=== PATIENT | female | born 1940 | race Caucasian/White ===

== ENCOUNTER → 2016-07-30 | Outpatient (CLI) | payer MEDICARE, OTHER ==
[~2016-07-30] MED LIST: ATOR80TA PO; CALC-191 PO; CARB30DR OP; CEPH-582 PO; CITA-51 PO; CRAN500C2 PO; DOCU-175 PO; IPRA4AER PO; LORA10TA7 PO; MULT-175 PO; OMEP20CA10 PO; RANI-197 PO; ROPI0.5T5 PO; SOTA80TA42 PO; TRAM50TA4 PO; VITAMIN B PO; WARF2.5T73 PO; [UNRECOGNIZED DRUG - CODE] PO; [UNRECOGNIZED DRUG - CODE] PO; [UNRECOGNIZED DRUG - OTHER] PO
[2016-07-30 08:52] LABS: BLOOD, URINE 3+ (NEGATIVE); COLOR,URINE YELLOW (YELLOW); LEUKOCYTE ESTERASE ,URINE NEGATIVE (NEGATIVE); NITRITE,URINE NEGATIVE (NEGATIVE); UROBILINOGEN,URINE 0.2 EU/DL (NORMAL)
[2016-07-30 08:59] LABS: SQUAMOUS EPITHELIAL CELL,UR 0-5
[2016-07-30 09:00] LABS: BACTERIA,URINE 3+ (NEGATIVE); MUCUS,URINE PRESENT; RBC,URINE 50-200 /HPF (0-3)
[2016-07-30 09:01] LABS: HYALINE CASTS, URINE 0-1 /LPF
== END ==
LOC: LABN.NHH 08:43
PROVIDERS: ATTEND Internal Medicine
DX: R32 Unspecified urinary incontinence (principal); Z46.6 Encounter for fitting and adjustment of urinary device
CPT/HCPCS: 81001

== ENCOUNTER 2016-10-09 09:14 | Inpatient (IN) ==
--- NOTE | 2016-10-09 09:58 | Emergency Department Report ---
Nausea/Vomiting/Diarrhea HPI - General Chief complaint: Nausea/Vomiting/Diarrhea Stated complaint: n/v Time Seen by Provider: 10/09/16 09:58 Source: patient, family Mode of arrival: ambulatory Limitations: no limitations - History of Present Illness HPI Narrative: Patient is a 75-year-old female morbid obesity, chronically on oxygen, currently on Coumadin due to CVA, atrial fibrillation. Patient presents the ER for evaluation of a 2 to three-day history of nausea vomiting diarrhea. Patient originally started with abdominal pain left-sided with associated diarrhea which is now resolved in the last 24-36 hours. Patient is also been having bilious vomiting which has not resolved, last episode of emesis was this morning. Patient doctors in [facility] [place] attempted to contact primary medical physician yesterday received no call back. Patient continuing to complain of 6/10 abdominal pain so patient was brought to the ER today for evaluation. MD complaint: nausea, vomiting, diarrhea, abdominal pain Onset (ago): day(s) (2-3) Description of Vomiting: bilious Description of Diarrhea: water Associated Abdominal Pain: Yes Location of pain: LUQ, LLQ Severity: moderate Severity scale (1-10): 6 Quality: cramping Context: history of abdominal surgery - Related Data Home Medications Medication Instructions Recorded Confirmed Acetaminophen [Acetaminophen ER] 1,300 mg PO BID #0 12/11/12 10/09/16 Citalopram Hydrobromide 40 mg PO DAILY #0 12/11/12 10/09/16 [Citalopram HBr] Gabapentin 400 mg PO HS #0 12/11/12 10/09/16 Loratadine 10 mg PO DAILY #0 12/11/12 10/09/16 Ropinirole HCl 0.75 mg PO HS #0 12/11/12 10/09/16 Sotalol HCl [Sotalol] 40 mg PO Q8hr #0 12/11/12 10/09/16 raNITIdine HCl [Ranitidine HCl] 150 mg PO BID #0 12/11/12 10/09/16 Atorvastatin [Lipitor] 80 mg PO HS #0 tab 06/05/15 10/09/16 Calcium Carbonate/Vitamin D3 1 tab PO DAILY #0 06/05/15 10/09/16 [Calcium 600-Vit D3 200 Tablet] Carboxymethylcellulose Sodium 2 drop OP PRN #0 03/10/16 07/15/17 [Refresh Plus] Docusate Sodium 100 mg PO BID #0 06/05/15 10/09/16 Multivitamin [One Daily] 1 tab PO DAILY #0 06/05/15 10/09/16 Omeprazole 20 mg PO DAILY #0 06/05/15 10/09/16 Tramadol HCl 50 mg PO BID #0 06/05/15 10/09/16 Warfarin Sodium 2.5 mg PO 1700 #0 06/05/15 10/09/16 Cranberry 500 mg PO DAILY #0 08/29/15 10/09/16 Ipratropium/Albuterol Sulfate 1 puff PO QID PRN #0 08/29/15 10/09/16 [Combivent Respimat Inhal [place]] VITAMIN B6/D3 1 tab PO DAILY #0 08/29/15 10/09/16 CephALEXin [Keflex] 250 mg PO DAILY 10/09/16 10/09/16 Nitroglycerin 0.4 mg SL Q5M PRN 10/09/16 10/09/16 Allergies Allergy/AdvReac Type Severity Reaction Status Date / Time Sulfa (Sulfonamide Allergy Severe SWELLING Verified 10/09/16 09:51 Antibiotics) Sulfamethoprim Allergy Unknown Uncoded 10/09/16 09:51 Review of Systems Constitutional: Reports: weakness. Denies: fever, chills ENT: Denies: throat pain, dental pain Cardiovascular: Denies: chest pain, palpitations Respiratory: Denies: cough, dyspnea Gastrointestinal: Reports: abdominal pain, nausea, diarrhea. Denies: vomiting, constipation, melena, hematochezia Genitourinary: Denies: urgency, dysuria, frequency Neurological: Denies: headache, weakness Endocrine: Denies: fatigue, heat or cold intolerance PFSH Patient Stated Medical History Cerebrovascular Accident Yes Cardiac Arrhythmia Yes: A FIB Hypertension Yes Other Respiratory Yes: HOME O2 USE Gastroesophageal Reflux Yes Disease Hx Incontinence Yes Hx Urinary Tract Infection Yes Medical History Updates: DVT. Hypercholesterol. Coronary artery disease. GERD Surgical History: Umbilical hernia repair many years ago - Social History Smoking status: Never smoker Substance use type: does not use Alcohol intake frequency: does not drink Physical Exam - Limitations Limitations: no limitations - General General appearance: alert, in no apparent distress, obese (morbid obesity) - Head Head exam: normocephalic - ENT ENT exam: Present: normal oropharynx, mucous membranes moist - Neck Neck exam: Present: full ROM - Chest Chest inspection: Present: symmetric chest wall rise - Respiratory Respiratory exam: Present: normal lung sounds bilaterally. Absent: respiratory distress, wheezes, stridor - Cardiovascular Cardiovascular exam: Present: regular rate, normal rhythm, normal heart sounds - Abdominal Exam Abdominal exam: Present: soft, diminished bowel sounds. Absent: distention Abdominal tenderness: Present: LUQ, LLQ, moderate - Extremities Exam Extremities exam: Present: full ROM, normal capillary refill. Absent: tenderness - Back Exam Back exam: Present: full ROM. Absent: tenderness - Skin Skin exam: Present: warm, dry - Neurological Exam Neurological exam: Present: alert, oriented X3 - Psychiatric Psychiatric exam: Present: normal affect, normal mood Course - Consultations Consultation #1: Dr. Jerson Lira, surgery: Admit to hospitalist service he will consult Consultation #2: Dr. Nina, hospitalist: Please insert NG tube, INR, 10 mg Reglan IV he will admit Vital Signs Temperature 97.8 F 10/09/16 09:15 Pulse Rate 89 10/09/16 09:15 Respiratory Rate 24 10/09/16 09:15 Blood Pressure 179/96 H 10/09/16 09:15 Pulse Oximetry 94 10/09/16 09:15 Temperature 97.8 F 10/09/16 09:15 Pulse Rate 89 10/09/16 09:15 Respiratory Rate 24 10/09/16 09:15 Blood Pressure 179/96 H 10/09/16 09:15 Pulse Oximetry 94 10/09/16 09:15 Nausea/Vomiting/Diarrhea - [facility] Narrative Medical decision making narrative: Small bowel obstruction, acute cholecystitis, gastroenteritis, - Differential Diagnosis Likely: food poisoning, gastroenteritis, dehydration - Medical Records Attestation: I reviewed the patient's medical records. - Lab Data Attestation: I reviewed the patient's lab results. Result diagrams: 10/09/16 10:12 10/09/16 10:12 Lab Results 10/09/16 10/09/16 10/09/16 Range/Units 10:12 10:12 10:32 WBC 10.2 (4.5-11.0) T/MM3 RBC 5.14 (4.00-5.20) M/MM3 Hgb 15.2 (12-16) GM/DL Hct 47.2 H (36-46) % MCV 91.8 (80-100) UM3 MCH 29.6 (26-34) UUG MCHC 32.2 (31-37) GM/DL RDW Std Deviation 44.5 (36.9-50.2) FL Plt Count 146 (130-400) T/MM3 MPV 10.0 (9.4-12.4) UM3 Immature Gran % (Auto) 0.2 (0.0-0.5) % Neut % (Auto) 66.7 H (33-66) % Lymph % (Auto) 26.8 (23-45) % Robertson % (Auto) 6.2 (0-9.0) % Eos % (Auto) 0.0 (0-4) % Baso % (Auto) 0.1 (0-2) % Neut # 6.8 (1.8-7.7) T/MM3 Lymph # 2.7 (1-4.8) T/MM3 Robertson # 0.6 (0-0.8) T/MM3 Eos # 0.0 (0-0.5) T/MM3 Baso # 0.0 (0-0.2) T/MM3 Abs Immat Gran (auto) 0.02 (0.00-0.03) T/MM3 Turbidity < 20 (0-20) Sodium 143 (134-144) MEQ/L Potassium 3.2 L (3.6-5) MEQ/L Chloride 97 L (98-107) MEQ/L Carbon Dioxide 34 H (22-30) MEQ/L Anion Gap 12 (5-15) MEQ/L BUN 13.0 (7-17) MG/DL Creatinine 0.6 L (0.7-1.2) MG/DL GFR Calculation 98 BUN/Creatinine Ratio 22 (6-26) RATIO Glucose 158 H (65-110) MG/DL Calculated Osmolality 278 (261-280) MOSM/KG Calcium 9.8 (8.4-10.2) MG/DL Total Bilirubin 1.10 (0.20-1.30) MG/DL Icterus Index < 2 (0-7) AST 45 H (14-36) U/L ALT 44 (9-52) U/L Alkaline Phosphatase 73 (38-126) U/L Total Protein 6.7 (6.3-8.2) G/DL Albumin 4.4 (3.5-5.0) G/DL Globulin 2.3 L (2.4-3.6) G/DL Albumin/Globulin Ratio 1.9 (1.1-2.2) RATIO Lipase 60 (23-300) U/L Specimen Hemolysis < 15 (0-25) Ur Collection Type Urine, clean catch Urine Color Yellow (YELLOW) Urine Clarity Cloudy Urine pH 6.0 (5.0-8.0) Ur Specific [place] 1.025 (1.015-1.025) Urine Protein 1+ A (NEGATIVE) Urine Glucose (UA) Negative (NEGATIVE) Urine Ketones 2+ A (NEGATIVE) Urine Occult Blood 2+ A (NEGATIVE) Urine Nitrate Negative (NEGATIVE) Urine Bilirubin 2+ A (NEGATIVE) Urine Urobilinogen 1.0 (NORMAL) EU/DL Ur Leukocyte Esterase 2+ A (NEGATIVE) Urine RBC 20-30 H (0-3) /HPF Urine WBC 10-20 H (0-5) /HPF Urine WBC Clumps Few Ur Squamous Epith Cells 0-5 Ur Transition Epith Cell 3-5 /HPF Ur Renal Epithelial Cell 1-3 /HPF Urine Bacteria 2+ H (NEGATIVE) Urine Yeast Budding+pseudohyphae A (NEGATIVE) Ur Culture Indicated? Cult reflexed &setup - Radiology Data Attestation: I reviewed the patient's radiology results. CT scan shows left upper quadrant dilated loops of small bowel concerning for partial small bowel obstruction, distal decompressed small bowel Disposition Clinical Impression: Partial small bowel obstruction UTI (urinary tract infection) Qualifiers: Urinary tract infection type: acute cystitis Hematuria presence: without hematuria Qualified Code(s): N30.00 - Acute cystitis without hematuria [place] [facility] [place] Condition: Stable Prescriptions: No Action Acetaminophen [Acetaminophen ER] 1,300 mg PO BID #0 Citalopram Hydrobromide [Citalopram HBr] 40 mg PO DAILY #0 Gabapentin 400 mg PO HS #0 Loratadine 10 mg PO DAILY #0 raNITIdine HCl [Ranitidine HCl] 150 mg PO BID #0 Tramadol HCl 50 mg PO BID #0 Atorvastatin [Lipitor] 80 mg PO HS #0 tab Carboxymethylcellulose Sodium [Refresh Plus] 2 drop OP PRN #0 Docusate Sodium 100 mg PO BID #0 Multivitamin [One Daily] 1 tab PO DAILY #0 Warfarin Sodium 2.5 mg PO 1700 #0 Nitroglycerin 0.4 mg SL Q5M PRN PRN Reason: Chest Pain Ropinirole HCl 0.75 mg PO HS #0 Sotalol HCl [Sotalol] 40 mg PO Q8hr #0 Omeprazole 20 mg PO DAILY #0 Calcium Carbonate/Vitamin D3 [Calcium 600-Vit D3 200 Tablet] 1 tab PO DAILY # 0 VITAMIN B6/D3 1 tab PO DAILY #0 Cranberry 500 mg PO DAILY #0 Ipratropium/Albuterol Sulfate [Combivent Respimat Inhal [place]] 1 puff PO QID PRN #0 PRN Reason: SHORTNESS OF AIR CephALEXin [Keflex] 250 mg PO DAILY Referrals: JERICA GAINES MD [Family Provider] - Time of Disposition: 12:20 - Seen By: physician
[2016-10-09] MEDS ORDERED: NS 1,000 ML IV ONE (10:01)
[2016-10-09] MEDS ORDERED: ONDANSETRON 4 MG/2 ML INJECTION IVP ONE (10:01)
[2016-10-09] MEDS ORDERED: FentaNYL 100 MCG/2 ML INJECTION IVP ONE (10:01)
[2016-10-09] MEDS ORDERED: SALINE FLUSH 10ml SYRINGE ONE (10:46)
[2016-10-09] MEDS ORDERED: IOHEXOL 300mg/ml 100ml INJECTION ONE (10:46)
[2016-10-09] MEDS ORDERED: NS 100 ML ONE (10:46)
[2016-10-09] MEDS ORDERED: METOCLOPRAMIDE 10mg/2ml INJECTION IVP ONE (12:17)
[2016-10-09] MEDS ORDERED: NITROGLYCERIN 0.4 MG SUBLINGUAL TABLET SL PRN (13:01)
--- NOTE | 2016-10-09 13:07 | History & Physical Report ---
History of Present Illness Date: 10/09/16 Chief complaint: Nausea and vomiting HPI: This is a 75 year old female that presents with 3 days of worsening nausea and vomiting and left-sided abdominal pain. On , it started with 2 large episodes of diarrhea and then has persistently had worsening nausea and vomiting ever since. Patient states that she is vomiting almost every 3-4 hours. There is no blood. She states that she's had a temperature as high as 100. She denies any recent sick contacts. States she's not been able to keep any of her medications down. Patient states that she is not passed gas or had a bowel movement since . Describes the episodes of vomiting as "violent". Patient denies any syncope seizures visual irritation is. She denies any chest pain or shortness of breath. Case discussed with at bedside. Review of Systems All systems: reviewed and no additional remarkable complaints except as stated [facility] Medical History Updates: Atrial fibrillation. CVA. Hypercholesterol. Coronary artery disease. GERD. COPD on 3L NC Surgical History: Umbilical hernia repair many years ago Family History: CAD DM - Social History Smoking status: Never smoker Alcohol intake: never Current residence: Apartment/Private Home Medications Home Medications Medication Instructions Recorded Confirmed Type Acetaminophen [Acetaminophen ER] 1,300 mg PO BID #0 12/11/12 10/09/16 History Citalopram Hydrobromide 40 mg PO DAILY #0 12/11/12 10/09/16 History [Citalopram HBr] Gabapentin 400 mg PO HS #0 12/11/12 10/09/16 History Loratadine 10 mg PO DAILY #0 12/11/12 10/09/16 History Ropinirole HCl 0.75 mg PO HS #0 12/11/12 10/09/16 History Sotalol HCl [Sotalol] 40 mg PO Q8hr #0 12/11/12 10/09/16 History raNITIdine HCl [Ranitidine HCl] 150 mg PO BID #0 12/11/12 10/09/16 History Atorvastatin [Lipitor] 80 mg PO HS #0 tab 06/05/15 10/09/16 History Calcium Carbonate/Vitamin D3 1 tab PO DAILY #0 06/05/15 10/09/16 History [Calcium 600-Vit D3 200 Tablet] Carboxymethylcellulose Sodium 2 drop OP PRN #0 06/05/15 10/09/16 History [Refresh Plus] Docusate Sodium 100 mg PO BID #0 06/05/15 10/09/16 History Multivitamin [One Daily] 1 tab PO DAILY #0 06/05/15 10/09/16 History Omeprazole 20 mg PO DAILY #0 06/05/15 10/09/16 History Tramadol HCl 50 mg PO BID #0 06/05/15 10/09/16 History Warfarin Sodium 2.5 mg PO 1700 #0 06/05/15 10/09/16 History Cranberry 500 mg PO DAILY #0 08/29/15 10/09/16 History Ipratropium/Albuterol Sulfate 1 puff PO QID PRN #0 08/29/15 10/09/16 History [Combivent Respimat Inhal [place]] VITAMIN B6/D3 1 tab PO DAILY #0 08/29/15 10/09/16 History CephALEXin [Keflex] 250 mg PO DAILY 10/09/16 10/09/16 History Nitroglycerin 0.4 mg SL Q5M PRN 10/09/16 10/09/16 History Allergies Allergy/AdvReac Type Severity Reaction Status Date / Time Sulfa (Sulfonamide Allergy Severe SWELLING Verified 10/09/16 09:51 Antibiotics) Sulfamethoprim Allergy Unknown Uncoded 10/09/16 09:51 Exam Vital Signs: Temperature 97.8 F 10/09/16 09:15 Pulse Rate 89 10/09/16 09:15 Respiratory Rate 24 10/09/16 09:15 Blood Pressure 179/96 H 10/09/16 09:15 Pulse Oximetry 94 10/09/16 09:15 Gen.-awake alert oriented 3, in no acute distress. HEENT-PERRLA EOMI. Neck-supple no JVD no bruits Cardiovascular-regular rate and rhythm Lungs-clear to auscultation bilaterally Abdomen-soft, nondistended, tender LUQ; hypoactive BS Extremities-no e/c/c Neurological-nonfocal Rectal-deferred -deferred Skin-W/D/I Height: 5 ft Weight: 154.6 kg Results - Labs CBC & Chem 7: 10/09/16 10:12 10/09/16 10:12 Assessment and Plan DVT Prophylaxis: Coumadin GI Prophylaxis: Protonix Resuscitation Status: Full Code Assessment and Plan: 1. PSBO - NGT/Reglan/NPO. Surgery consult pending. Has started to pass gas today while in the ER. 2. UTI - C+S pending. Start Rocephin and Diflucan. 3. Atrial fibrillation - in NSR. Restart Sot/Warf when taking po. 4. COPD - nebs prn. Continue O2 NC. - Time spent with patient 25 - 35 minutes Hospital Course Summary Disclaimer: The visit summary below is not to be considered part of the above Progress Note.
[2016-10-09] MEDS ORDERED: REFRESH CELLUVISC 1% Eye Drops 0.4ml EACH EYE PRN (13:15)
[2016-10-09 13:50] VITALS: BMI 71.9
[2016-10-09] MEDS: METOCLOPRAMIDE 10mg/2ml INJECTION IVP SCH ×2 (13:53→18:50)
[2016-10-09] MEDS: NS with KCL 20 mEq 20 MEQ/1,000 ML IV.SOLN IV SCH (14:03)
[2016-10-09] MEDS: CEFTRIAXONE 1 G in NS 100 ML IV SCH (14:05)
[2016-10-09] MEDS: FLUCONAZOLE PB 100 MG/50 ML BAG IV SCH (14:57)
[2016-10-09] MEDS: HYDROMORPHONE 2 MG/ML INJECTION IVP PRN (21:24)
[2016-10-10] MEDS: NS with KCL 20 mEq 20 MEQ/1,000 ML IV.SOLN IV SCH ×3 (01:42→12:13)
[2016-10-10] MEDS: METOCLOPRAMIDE 10mg/2ml INJECTION IVP SCH ×4 (01:48→19:04)
[2016-10-10] MEDS: HYDROMORPHONE 2 MG/ML INJECTION IVP PRN (06:34)
--- NOTE | 2016-10-10 09:23 | Progress Note ---
Subjective: Passing gas. Eager to go home. No abdominal pain. No events overnight. Breathing at baseline. Objective Vital signs: Temperature 97.6 F 10/10/16 07:26 Pulse Rate 77 10/10/16 07:26 Respiratory Rate 16 10/10/16 07:26 Blood Pressure 124/73 10/10/16 07:26 Pulse Oximetry 95 10/10/16 07:26 Oxygen Delivery Method Nasal Cannula Oxygen Flow Rate 3 General-awake alert oriented 3 in no acute distress CV-regular rate and rhythm Lungs-mild wheeze bilaterally Abdomen-obese, benign Ext-1+ edema Weight: 167.4 kg Results - Labs CBC & Chem 7: 10/10/16 04:45 10/10/16 04:45 Assessment and Plan DVT Prophylaxis: Coumadin GI Prophylaxis: Protonix Resuscitation Status: Full Code Assessment and Plan: 1. PSBO - Clinically improving. Will DC NGT and start clear liquids. Continue reglan. Encourage ambulation. 2. UTI - Gram negative organisms. Continue Rocephin. 3. Atrial fibrillation - in NSR. Restart Sotalol today. 4. COPD - nebs prn. Continue O2 NC. 5. Transaminitis - etiology unclear. No source seen on CT. Hepatic congestion?? Monitor. - Time spent with patient 25 - 35 minutes Sepsis Assessment - Evaluation Sepsis screening result: No Definite Risk Hospital Course Summary Disclaimer: The visit summary below is not to be considered part of the above Progress Note.
[2016-10-10] MEDS: PANTOPRAZOLE 40 MG INJECTION IVP SCH (09:53)
--- NOTE | 2016-10-10 10:23 | CT Scan Report ---
Indication: severe abdominal pain, localizing somewhat right side PROCEDURE: CT abdomen pelvis w con: Encounter: Initial Comparison: None Technique: Axial CT images were performed through the abdomen and pelvis after the administration of intravenous contrast. Coronal and sagittal two-dimensional reformats. Automated Exposure Control and Iterative Reconstruction dose reducing techniques were utilized. Contrast: Omnipaque 300 100 mL Findings: Lung bases are grossly clear. Heart is enlarged. Liver shows no gross abnormality. Evaluation is limited due to patient body habitus and attenuation artifact. The spleen is grossly normal. The pancreas is within normal limits. Kidneys appear normal but are somewhat obscured by artifact. No evidence of a bowel obstruction. Bladder is decompressed with a Myers catheter. Uterus is grossly normal. There are dilated small bowel loops seen in the left abdomen with gradual transition to decompressed distal ileum. Portions of the left abdomen are not fully included in the [id number]. No discrete transition point identified. Colonic diverticulosis without evidence of acute diverticulitis. Impression: Findings suggesting a focal ileus or partial small bowel obstruction in the left mid abdomen. There is a preliminary report by [employer]. .
[2016-10-10] MEDS: CEFTRIAXONE 1 G in NS 100 ML IV SCH (12:59)
[2016-10-10] MEDS: FLUCONAZOLE PB 100 MG/50 ML BAG IV SCH (13:57)
[2016-10-10] MEDS: TRAMADOL 50 MG TABLET PO PRN (22:12)
[2016-10-10] MEDS: ACETAMINOPHEN 325 MG TABLET PO PRN (22:12)
[2016-10-11] MEDS: METOCLOPRAMIDE 10mg/2ml INJECTION IVP SCH ×4 (02:03→18:01)
[2016-10-11] MEDS: SALINE FLUSH 10ml SYRINGE IVF PRN ×4 (07:41→18:02)
[2016-10-11] MEDS: PANTOPRAZOLE 40 MG INJECTION IVP SCH (09:21)
[2016-10-11] MEDS ORDERED: BISACODYL 10 MG SUPPOSITORY RECTALLY PRN (10:18)
[2016-10-11] MEDS ORDERED: NS FLUSH BAG 500ml IV PRN (12:07)
[2016-10-11] MEDS: ACETAMINOPHEN 325 MG TABLET PO PRN (12:13)
[2016-10-11] MEDS: TRAMADOL 50 MG TABLET PO PRN (12:14)
[2016-10-11] MEDS: FLUCONAZOLE PB 100 MG/50 ML BAG IV SCH (12:15)
[2016-10-11] MEDS: CEFTRIAXONE 1 G in NS 100 ML IV SCH (13:24)
--- NOTE | 2016-10-11 16:22 | Progress Note ---
Subjective: Tolerating food. No BM. No pain. Objective Vital signs: Temperature 98.4 F 10/11/16 15:40 Pulse Rate 86 10/11/16 15:40 Respiratory Rate 16 10/11/16 15:40 Blood Pressure 128/69 10/11/16 15:40 Pulse Oximetry 96 10/11/16 15:40 Oxygen Delivery Method Nasal Cannula Oxygen Flow Rate 4 General-awake alert oriented 3 in no acute distress CV-regular rate and rhythm Lungs-mild wheeze bilaterally Abdomen-obese, benign Ext-1+ edema Weight: 168.5 kg Results - Labs CBC & Chem 7: 10/11/16 06:20 10/11/16 06:20 Assessment and Plan Assessment and Plan: 1. PSBO - Clinically improving. Awaiting BM. 2. UTI - Enterobacter. Continue Rocephin. 3. Atrial fibrillation - in NSR. Coumadin/Sotalol today. 4. COPD - nebs prn. Continue O2 NC. 5. Transaminitis - etiology unclear. Improving. No source seen on CT. Sepsis Assessment - Evaluation Sepsis screening result: No Definite Risk Hospital Course Summary Disclaimer: The visit summary below is not to be considered part of the above Progress Note.
[2016-10-11] MEDS: CIPROFLOXACIN 500 MG TABLET PO SCH (18:36)
[2016-10-12] MEDS: METOCLOPRAMIDE 10mg/2ml INJECTION IVP SCH ×2 (00:05→06:20)
[2016-10-12] MEDS: CIPROFLOXACIN 500 MG TABLET PO SCH (06:18)
[2016-10-12 07:31] VITALS: BP 120/82; PULSE 75; RESP 22; TEMP 96.9; O2SAT 96
--- NOTE | 2016-10-12 08:46 | Discharge Instructions ---
Discharge Plan - [facility]o Eduardo Instructions: Urinary Tract Infection in Women (DC), Bowel Obstruction ( DC) Prescriptions: New Ciprofloxacin [Cipro] 500 mg PO BID/E #6 tablet Continue Acetaminophen [Acetaminophen ER] 1,300 mg PO BID #0 Citalopram Hydrobromide [Citalopram HBr] 40 mg PO DAILY #0 Gabapentin 400 mg PO HS #0 Loratadine 10 mg PO DAILY #0 raNITIdine HCl [Ranitidine HCl] 150 mg PO BID #0 Tramadol HCl 50 mg PO BID #0 Atorvastatin [Lipitor] 80 mg PO HS #0 tab Carboxymethylcellulose Sodium [Refresh Plus] 2 drop OP PRN #0 Docusate Sodium 100 mg PO BID #0 Multivitamin [One Daily] 1 tab PO DAILY #0 Warfarin Sodium 2.5 mg PO 1700 #0 Nitroglycerin 0.4 mg SL Q5M PRN PRN Reason: Chest Pain Ropinirole HCl 0.75 mg PO HS #0 Sotalol HCl [Sotalol] 40 mg PO Q8hr #0 Omeprazole 20 mg PO DAILY #0 Calcium Carbonate/Vitamin D3 [Calcium 600-Vit D3 200 Tablet] 1 tab PO DAILY # 0 VITAMIN B6/D3 1 tab PO DAILY #0 Cranberry 500 mg PO DAILY #0 Ipratropium/Albuterol Sulfate [Combivent Respimat Inhal [place]] 1 puff PO QID PRN #0 PRN Reason: SHORTNESS OF AIR Discontinued CephALEXin [Keflex] 250 mg PO DAILY Discharge Instructions/Outpatient Orders: Final Provider Discharge Instructions Location: Determined By Patient - Disposition 01 Discharged Home, Self-Care
--- NOTE | 2016-10-12 08:51 | Discharge Summary ---
Discharge Information Date of admission: 10/09/16 12:26 Anticipated date of discharge: 10/12/16 Attending Physician: Adama Ferreira MD Primary care physician: JERICA GAINES - Discharge Diagnosis (1) Partial small bowel obstruction Status: Acute (2) UTI (urinary tract infection) Qualifiers: Urinary tract infection type: acute cystitis Hematuria presence: without hematuria Qualified Code(s): N30.00 - Acute cystitis without hematuria Status: Acute - Laboratory Labs: 10/11/16 06:20 10/11/16 06:20 History of Present Illness HPI: This is a 75 year old female that presents with 3 days of worsening nausea and vomiting and left-sided abdominal pain. On , it started with 2 large episodes of diarrhea and then has persistently had worsening nausea and vomiting ever since. Patient states that she is vomiting almost every 3-4 hours. There is no blood. She states that she's had a temperature as high as 100. She denies any recent sick contacts. States she's not been able to keep any of her medications down. Patient states that she is not passed gas or had a bowel movement since . Describes the episodes of vomiting as "violent". Patient denies any syncope seizures visual irritation is. She denies any chest pain or shortness of breath. Case discussed with at bedside. Objective Vital signs: Temperature 96.9 F 10/12/16 07:27 Pulse Rate 75 10/12/16 07:27 Respiratory Rate 22 10/12/16 07:27 Blood Pressure 120/82 10/12/16 07:27 Pulse Oximetry 96 10/12/16 07:27 Oxygen Delivery Method CPAP Oxygen Flow Rate 3 General-awake alert oriented 3 in no acute distress CV-regular rate and rhythm Lungs-mild wheeze bilaterally Abdomen-obese, benign Ext-1+ edema Weight: 169 kg Hospital Course This is a general summary of the patient's hospital course. For more details refer to the complete medical record. 1. Partial small bowel obstruction - resolved with conservative treatment. Was treated with Reglan, NG tube and bowel rest. When she started passing gas her diet was advanced. She had a bowel movement the night prior to discharge. She was tolerating solid foods. 2. UTI - Enterobacter and Escherichia coli. Resistant to Keflex that she was taking as an outpatient and is being switched to Cipro. 3. Atrial fibrillation - in NSR. Coumadin/Sotalol was continued. 4. COPD - nebs prn. Continue O2 NC. 5. Transaminitis - etiology unclear. Resolved. No source seen on CT. Time spent with patient: 25 - 35 minutes DVT Prophylaxis: Coumadin GI Prophylaxis: Protonix Discharge Plan - Med Rec/Dispo Eduardo Instructions: Urinary Tract Infection in Women (DC), Bowel Obstruction ( DC) Prescriptions: New Ciprofloxacin [Cipro] 500 mg PO BID/E #6 tablet Continue Acetaminophen [Acetaminophen ER] 1,300 mg PO BID #0 Citalopram Hydrobromide [Citalopram HBr] 40 mg PO DAILY #0 Gabapentin 400 mg PO HS #0 Loratadine 10 mg PO DAILY #0 raNITIdine HCl [Ranitidine HCl] 150 mg PO BID #0 Tramadol HCl 50 mg PO BID #0 Atorvastatin [Lipitor] 80 mg PO HS #0 tab Carboxymethylcellulose Sodium [Refresh Plus] 2 drop OP PRN #0 Docusate Sodium 100 mg PO BID #0 Multivitamin [One Daily] 1 tab PO DAILY #0 Warfarin Sodium 2.5 mg PO 1700 #0 Nitroglycerin 0.4 mg SL Q5M PRN PRN Reason: Chest Pain Ropinirole HCl 0.75 mg PO HS #0 Sotalol HCl [Sotalol] 40 mg PO Q8hr #0 Omeprazole 20 mg PO DAILY #0 Calcium Carbonate/Vitamin D3 [Calcium 600-Vit D3 200 Tablet] 1 tab PO DAILY # 0 VITAMIN B6/D3 1 tab PO DAILY #0 Cranberry 500 mg PO DAILY #0 Ipratropium/Albuterol Sulfate [Combivent Respimat Inhal [place]] 1 puff PO QID PRN #0 PRN Reason: SHORTNESS OF AIR Discontinued CephALEXin [Keflex] 250 mg PO DAILY Discharge Instructions/Outpatient Orders: Final Provider Discharge Instructions Location: Determined By Patient - Disposition 01 Discharged Home, Self-Care
--- NOTE | 2016-10-12 08:52 | Pharmacy Consult ---
Pharmacy Consult-Warfarin - Laboratory Information 10/10/16 10/11/16 10/12/16 04:45 06:20 04:33 INR 2.46 H 2.96 H 2.36 H COUMADIN CONSULT (Initial): Dx: Partial Small Bowel Obstruction Baseline INR = 2,36. Ms. Hawthorne is an 75 yo female that was admitted with nausea and vomiting which is atributed to Partial Small Bowel Obstruction. She has be diagnosed in the past with a CVA and A Fib, which accounts for her warfarin anticoagulation therapy. She is currently on Cipro 500 mg po bid and Fluconazole, which are for the Acute Cystitiis. Both Cipro and Fluconazole can increase the warfarin activity, so I'm reducing the warfarin to 1.5 mg today. The Pharmacy will continue to monitor and make adjustments accordingly. Thank you for the Warfarin Dosing Protocol, Antoine Centeno, Pharmacist.
[2016-10-12] MEDS ORDERED: WARFARIN 3 MG TABLET PO SCH (12:00)
== END 2016-10-12 09:58 | disposition home health service (06) | DRG 389 ==
LOC: ED 09:14 → SRG 12:26
PROVIDERS: ADMIT Internal Medicine; ATTEND Internal Medicine